=== PATIENT | male | born 1950 | race Caucasian/White ===

== ENCOUNTER 2024-03-11 10:04 | Outpatient (REF) | payer MEDICARE, OTHER, MEDICAID, SELFPAY ==
--- NOTE | ~2024-03-11 | XR_ITS ---
CLINICAL HISTORY: M25.512 - Pain in left shoulder 2 view left shoulder Comparison: None Findings: Periarticular osteophyte formation at the acromioclavicular and glenohumeral joints, indicating osteoarthritis. No erosions. No radiopaque foreign body. IMPRESSION: 1. No acute findings This document has been electronically signed by: Cyndi Mckenzie MD on 03/12/2024 14:57:13
--- NOTE | ~2024-03-11 | XR_ITS ---
CLINICAL HISTORY: M25.511 - Pain in right shoulder 2 view right shoulder Comparison: None Findings: Bones intact. No dislocations. Periarticular osteophyte formation at the acromioclavicular and glenohumeral joints, indicating osteoarthritis. No erosions. No radiopaque foreign body. IMPRESSION: 1. No acute findings This document has been electronically signed by: Cyndi Mckenzie MD on 03/12/2024 14:59:24
--- OUTSIDE RECORDS SUMMARY | 2024-03-12 13:16 | XMS_ITS | Clinical Summary ---
Author Organization [facility] Address [address] [place] [address] Care Team Providers Care Clinical Safety Specialist Name Role Phone Ramiro De Paz MD Primary Care Provider [phone] Allergies No known active allergies Medications Medication [...] age to complete this topic Care Teams Clinical Safety Specialist Relationship Specialty Start Date End Date Ramiro De Paz MD [address] [place] [address] PCP - General Internal Medicine 08/28/23
--- OUTSIDE RECORDS SUMMARY | 2024-03-12 13:17 | XMS_ITS | Clinical Summary ---
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-C4 level, sequela (CMS/HCC) (Primary Dx) 12/28/2023 2:47 PM EST - 12/28/2023 6:52 PM EST Emergency [facility] Emergency [address] [place] [phone] Karthik Hunter MD Right shoulder pain, unspecified chronicity (Primary Dx); First degree AV block Discharge Disposition: Home or Self Care 12/25/2023 5:15 PM EST Treatment [address] [phone] Jerry Marlow, PT Spinal cord injury at C1-C4 level, sequela (CMS/HCC) (Primary Dx) 12/23/2023 5:45 PM EST Treatment [address] [phone] Josef Gao, TEMPLATE INSPECTOR 12/19/2023 6:21 PM EST - 12/19/2023 11:59 PM EST Hospital Encounter [facility] [place] [address] [place] [phone] Acute pain of right shoulder Discharge Disposition: Home or Self Care 12/19/2023 5:30 PM EST Office Visit Walk-In Clinic [facility] [address] [place] [phone] Peng Rothman MD Acute pain of right shoulder (Primary Dx); Tendinitis of right shoulder 12/16/2023 5:45 PM EST Treatment [facility] Outpatient Rehabilitation - [place] 175 [facility] [address] [place] [address] Josef Gao, TEMPLATE INSPECTOR Hereditary spastic paraplegia (CMS/HCC) from Last 3 [...] 3:45 PM EST Consult Orthopedic Surgery - [place] 175 [facility] [address] [place] [address] Elaine Cooper MD [address] [place] [address] [address] [place] [address] Health Maintenance Due Date Last [...] ??Severe DJD of the glenohumeral joint with mtak-qd-clod arthritis. ?? No acute osseous abnormalities. Pj [...] ED Physician in the absence of a office secretary: yes ?? Previous ECG: ??Previous ECG: ??Compared to current ??Comparison ECG info: ??Brief 1-lead rhythm strip seen from January 2023, heart rate 75 bpm. ??No obvious PA prolongation. ??No formal EKG otherwise available. Interpretation: ??Interpretation: abnormal ?Details: ??Sinus bradycardia with a ventricular rate of 53 bpm. ??Slightly prolonged PA interval at 204 ms. ??Normal QRS, QTc, axis. ??No acute ischemic changes. ??First-degree AV block. Karthik Hunter MD ECG ORDERABLES from Last 3 Months Care Teams Sports Editor Relationship Specialty Start Date End Date Ramiro De Paz MD [address] [place] [address] [address] [place] [address] PCP - General 05/13/22
--- OUTSIDE RECORDS SUMMARY | 2024-03-12 13:17 | XMS_ITS | Encounter Summary ---
Author Organization [facility] Address [address] [place] [address] Care Team Providers Care Garment Inspector Name Role Phone Ramiro De Paz MD Primary Care Provider [phone] Reason for Referral * Consultation (Routine) - Authorized Specialty Diagnoses / Procedures Referred By Contolivia t Referred To Contact Occupational Therapy Diagnoses Arthritis of right shoulder region Pj Shaikh MD [address] [address] Referral ID Status Reason Start Date Expiration Date Visits Requested Visits Authorized [id number] Authorized Specialty Services Required 02/26/2024 02/25/2025 1 1 Reason for Visit * Reason Comments Pain Encounter Details Date Type Department Care Team ([facility] st Contact Info) Description 02/26/2024 2:30 PM EST Consult Orthopedic Surgery - [place] [address] [address] Pj Shaikh MD [address] [address] Arthritis of right shoulder region (Primary Dx) [...] Severe DJD of the glenohumeral joint with ptvl-mk-mtpm arthritis. No acute osseous abnormalities. Assessment and [...] 3:45 PM EST Consult Orthopedic Surgery - [place] 175 [facility] [address] [place] [address] Elaine Cooper MD 175 [facility] [address] [place] [address] Scheduled Referrals Name Type Priority [...] 12/19/2023 added in this encounter Care Teams Garment Inspector Relationship Specialty Start Date End Date Ramiro De Paz MD [address] [place] [address] PCP - General 05/13/22 documented as of this encounter
--- OUTSIDE RECORDS SUMMARY | 2024-03-12 13:17 | XMS_ITS | Patient Health Record ---
Author Organization Luis Valdes MD Address [address] [address] Care Team Providers Care Test Deck Supervisor Name Role Phone Leslye Smith Primary Care Provider [phone] Allergies Allergen (clinical drug ingredient) Drug/Non Drug [...] Unknown 01/13/2016 Administered Shingrix Unknown 06/09/2020 Administered [facility] pharmacy Zostavax Unknown 11/01/2020 Administered [facility] Lot# [id number] Left arm Social History [...] Problem Status W/U Status Risk Notes Problem 223581711 Chronic pain syndrome (G89.4) Active confirmed Problem 445966159 Quadriplegia, C5-C7 incomplete (G82.54) Active confirmed Problem 527082620 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) Active confirmed Problem 09171801 Age-related osteoporosis without current pathological fracture (M81.0) Active confirmed Problem 18084947 Dysthymia (F34.1) Active confirmed Problem 644523047 Recurrent UTI (N39.0) Active confirmed Problem Neuropathic pain (236313272) Neuropathic pain (M79.2) Active confirmed Problem 966583859 Spasticity (R25.2) Active confirmed Problem 85728637495798802 Neuralgia of both lower extremities (G57.93) Active confirmed Problem 335747313 Urinary incontinence with continuous leakage (N39.45) Active confirmed Problem 098454732 Decubitus ulcer of sacral region, stage 1 (L89.151) Active confirmed Problem 89008723 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) Active confirmed Problem 044775312 Chronic pain after traumatic injury (G89.21) Active confirmed Problem 71063294657549925 Pressure injur y of buttock, stage 1, unspecified laterality (L89.301) Active confirmed Plan Of Treatment Pending Test Test Name Order Date VENIPUNCT, ROUTINE* 04/05/2020 Physical Therapy 05/26/2020 Occupational Therapy 06/02/2020 Insurance Providers Payer Name Payer Address Payer Phone Subscriber Number Group Number Insured Name Patient Relationship to Insured Coverage Start Date Coverage End Date Medicare Centers for Medicare & Medicaid Services [place] Kathy [id number] [phone] [id number] Scott Concepcion Self - patient is the insured [facility] Indemnity Plan [address] [place] [address] [phone] [id number] Scott Concepcion Self - patient is the insured [employer] [address] [place] [address] [phone] [id number] Scott Concepcion Self - patient is the [...]
== END 2024-03-11 10:05 | disposition home or self-care (01) ==
LOC: HO.HOSX 10:04
PROVIDERS: Visit Provider Orthopaedic Surgery
DX: M25.811 Other specified joint disorders, right shoulder (principal); M25.511 Pain in right shoulder; M25.512 Pain in left shoulder
CPT/HCPCS: 20610; 73030; J1010; J2003

== ENCOUNTER 2024-03-11 13:49 | Outpatient (AMB) | payer OTHER, MEDICAID, SELFPAY ==
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
[2024-03-11 14:16] VITALS: BMI 31.9
--- OUTSIDE RECORDS SUMMARY | 2024-03-11 16:05 | XMS_ITS | Encounter Summary ---
Author Organization [facility] Address [address] [place] [address] Care Team Providers Care Bit Sharpener Operator Name Role Phone Ramiro De Paz MD Primary Care Provider [phone] Reason for Referral * Consultation (Routine) - Authorized Specialty Diagnoses / Procedures Referred By Contolivia t Referred To Contact Occupational Therapy Diagnoses Arthritis of right shoulder region Pj Shaikh MD [address] [address] Referral ID Status Reason Start Date Expiration Date Visits Requested Visits Authorized [id number] Authorized Specialty Services Required 02/26/2024 02/25/2025 1 1 Reason for Visit * Reason Comments Pain Encounter Details Date Type Department Care Team ([facility] st Contact Info) Description 02/26/2024 2:30 PM EST Consult Orthopedic Surgery - [place] [address] [address] Pj Shaikh MD [address] [address] Arthritis of right shoulder region (Primary Dx) Social History Tobacco Use Types Packs/Day Years Used Date Smoking Tobacco: Never Smokeless Tobacco: Never Alcohol Use Standard Drinks/Week Comments Yes 0 (1 standard drink = 0.6 oz pur e alcohol) Sex and Gender Information Value Date Recorded Sex Assigned at Not on file Gender Identity Not on file Sexual Orientation Not on file Job Start Date Occupation Industry Not on file Not on file Not on file documented as of this encounter Last Filed Vital Signs Vital Sign Reading Time Taken Comments Blood Pressure - - Pulse - - Temperature - - Respiratory Rate - - Oxygen Saturation - - Inhaled Oxygen Concentration - - Weight 95.3 kg (210 lb) 02/26/2024 2:19 PM EST Height 170.2 cm (5' 7 ) 02/26/2024 2:19 PM EST Body Mass Index 32.89 02/26/2024 2:19 PM EST documented in this encounter Progress Notes * Pj Shaikh MD - 02/26/2024 2:30 PM EST Patient:Scott Concepcion : 1950 VISIT DATE: 02/26/2024 Chief Complaint: Chief Complaint Patient presents with Right Shoulder - Pain HPI: Scott Concepcion is a 73 y.o.year old male who presents for consultation regarding his right shoulder. ROS: GENERAL:negative MUSCULOSKELETAL: See HPI The remainder of the review of systems is noncontributory Allergies: No Known Allergies Past Medical History: has a past medical history of Chronic constipation, Diastasis recti, Gastroparesis (07/2022), GERD (gastroesophageal reflux disease), Lymphedema, Neurogenic bladder, Neuropathicpain, Osteoporosis, Positive colorectal cancer screening using Cologuard test (10/2022), Tetraplegia (CMS/HCC) (2011), and Umbilical hernia. Social History: Social History Tobacco Use Smoking status: Never Smokeless tobacco: Never Substance Use Topics Alcohol use: Yes Past Surgeries: Past Surgical History: Procedure Laterality Date ANTERIOR CERVICAL DISCECTOMY 10/17/2011 APPENDECTOMY 05/10/2004 COLONOSCOPY 01/2023 incomplete due to poor prep UMBILICAL HERNIA REPAIR 09/17/2019 Medications: Outpatient Medications Marked as Taking for the 02/26/24 encounter (Consult) with Pj Shaikh MD Medication Sig Dispense Refill baclofen (LIORESAL) 10 mg tablet TAKE 2 TABLETS BY MOUTH 4 TIMES A DAY WITH FOOD OR MILK FOR 90 DAYS calcium carbonate-vitamin D3 (Caltrate 600 plus D) 600 mg-20 mcg (800 unit) tablet,chewable Chew 1 tablet. capsaicin (ZOSTRIX) 0.025 % cream APPLY TO AFFECTED AREA (BACK) 3 TIMES A DAY NEEDED clotrimazole (LOTRIMIN) 1 % cream APPLY AT BEDTIME ONCE A DAY TO GROIN finasteride (PROSCAR) 5 mg tablet Take 1 tablet (5 mg total) by mouth 1 (one) time each day. gabapentin (NEURONTIN) 300 mg capsule Take 2 capsules (600 mg total) by mouth. lidocaine (LIDODERM) 5 % patch 1 patch topically as needed for pain LYCOPENE ORAL tablet(s) oral naproxen (NAPROSYN) 500 mg tablet TAKE 1 TABLET BY MOUTH 2 TIMES DAILY (WITH MEALS) FOR 360 DAYS. nystatin (MYCOSTATIN) cream 1 APPLICATION TOPICALLY 2 TIMES A DAY,INSTR:TO GROIN. tamsulosin (FLOMAX) 0.4 mg 24 hr capsule Take 1 capsule (0.4 mg total) by mouth 1 (one) time each day. Physical Exam: Vitals: 02/26/24 1419 Weight: 95.3 kg (210 lb) Height: 1.702 m (67 ) APPEARANCE: Alert, oriented, no acute distress RIGHTSHOULDER SHOULDER EXAM: RIGHT Inspection: He is in a wheelchair. No significant atrophy or deformity to his shoulder Palpation: Mild tenderness around the glenohumeral joint line ROM: Active 160/70/L5 Passive approximates active range of motion Neurovascular: No gross deficits distally Strength: 4/5 supraspinatus, 4/5 infraspinatus, 5/5 subscapularis Special Tests: Neer. Positive Jara. Images: XR Shoulder 2+ Views Right Right shoulder x-rays February 26, 2024. AP, Grashey, Y lateral, axillary views. Severe DJD of the glenohumeral joint with sndu-kf-noci arthritis. No acute osseous abnormalities. Assessment and Plan: 1. Arthritis of right shoulder region He uses his walker part-time but otherwise he is essentially wheelchair-bound. He does have to do alot of weightbearing on his shoulders which is certainly contributing to his symptoms. He is not a good candidate for arthroplasty given the significant weightbearing he does on his shoulders. Would like to avoid cortisone injections as can lead to further deterioration. Will start with occupational therapy to help him modify his activities. He would also like to see a hand surgeon regarding the significant stiffness he has in both of his hands. Physical Therapy: PT/OT referral given today Pj Shaikh MD documented in this encounter Plan of Treatment Upcoming Encounters Date Type Department Care Team (Late st Contact Info) Description 03/17/2024 3:45 PM EST Consult Orthopedic Surgery - [place] 175 [facility] [address] [place] [address] Elaine Cooper MD 175 [facility] [address] [place] [address] Scheduled Referrals Name Type Priority Associated Diagnoses Order Schedule Ambulatory referral to Occupational Therapy Outpatient Referral Routine Arthritis of right shoulder region 1 Occurrences starting 02/26/2024 until 02/25/2025 documented as of this encounter Goals Goal Patient Goal Type Associated Problems Recent Progress Patient-Stated? Author LTGs General No Jerry Marlow, PT Note: Pt will transfer sit to stand from power w/c using w/walker with supervision - met Pt will ambulate with w/walker x50 ft with supervision - not met Pt will be independent with HEP - met documented as of this encounter Visit Diagnoses Diagnosis Arthritis of right shoulder region- Primary documented in this encounter Historical Medications * This list may reflect changes made after this encounter. Medication Sig Dispensed Refills Start Date End Date tamsulosin (FLOMAX) 0.4 mg 24 hr capsule Take 1 capsule (0.4 mg total) by mouth 1 (one) time each day. 10/08/2023 nystatin (MYCOSTATIN) cream 1 APPLICATION TOPICALLY 2 TIMES A DAY,INSTR:TO GROIN. 02/08/2024 naproxen (NAPROSYN) 500 mg tablet TAKE 1 TABLET BY MOUTH 2 TIMES DAILY (WITH MEALS) FOR 360 DAYS. 10/20/2023 LYCOPENE ORAL tablet(s) oral 09/26/2020 lidocaine (LIDODERM) 5 % patch 1 patch topically as needed for pain 01/01/2017 finasteride (PROSCAR) 5 mg tablet Take 1 tablet (5 mg total) by mouth 1 (one) time each day. 12/05/2023 clotrimazole (LOTRIMIN) 1 % cream APPLY AT BEDTIME ONCE A DAY TO GROIN 02/08/2024 capsaicin (ZOSTRIX) 0.025 % cream APPLY TO AFFECTED AREA (BACK) 3 TIMES A DAY NEEDED 01/10/2024 calcium carbonate-vitamin D3 (Caltrate 600 plus D) 600 mg-20 mcg (800 unit) tablet,chewable Chew 1 tablet. 07/29/2017 gabapentin (NEURONTIN) 300 mg capsule Take 2 capsules (600 mg total) by mouth. 01/01/2024 baclofen (LIORESAL) 10 mg tablet TAKE 2 TABLETS BY MOUTH 4 TIMES A DAY WITH FOOD OR MILK FOR 90 DAYS 12/19/2023 added in this encounter Care Teams Bit Sharpener Operator Relationship Specialty Start Date End Date Ramiro De Paz MD [address] [place] [address] PCP - General 05/13/22 documented as of this encounter
--- OUTSIDE RECORDS SUMMARY | 2024-03-11 16:05 | XMS_ITS | Data Portability ---
Author Organization [facility] Address [address] [place] [address] Care Team Providers Care Automatic Machine Attendant Name Role Phone CHRISTEN GAYTAN Primary Care Provider [phone] CHIRSTEN GAYTAN Referring Provider [phone] Assessment Encounter Date Assessment Date Assessment LastModified by Organization Details LastModified Time 03/22/2020 03/22/2020 have cleaned out both ears. they look fine after cleaning he feels his hearing is back to normal [email or web address] Not available 03/22/2020 14:41:03 Plan of Treatment Reminders Order Date Submit Date Provider Last Modified By Organization Details Last Modified Time Details Appointments None record ed. Lab None record ed. Referral None record ed. Procedures None record ed. Surgeries None record ed. Imaging None record ed. Medication Orders None record ed. Patient TargetsNo targets recorded. Patient InstructionsNo instructions recorded. Reason for Referral None Reported. Procedures Surgical History Date Name Laterality Status Provider Name and Address Organization Details Recorded Time procedure on knee completed Mike Medrano [employer] 03/22/2020 13:58:00 Imaging Results None recorded. Procedure Notes None recorded. Medical Equipment None Reported. Allergies No known drug allergies Medications Name Sig Start Date Stop Date Status Note LastModified by Organization Details LastModified Time dantrolene 25 mg capsule active Not Available Not Available Not Available sulfamethoxazole 800 mg-trimethoprim 160 mg tablet active Not Available Not Availabl e Not Available tamsulosin 0.4 mg capsule active Not Available Not Available Not Available baclofen 10 mg tablet active Not Available Not Available Not Available gabapentin 300 mg capsule active Not Available Not Available Not Available mupirocin 2 % topical ointment active Not Available Not Avail able Not Available furosemide 20 mg tablet active Not Available Not Available Not Available nystatin 100,000 unit/gram topical powder active Not Available Not Available Not Available ketoconazole 2 % topical cream active Not Available Not Availabl e Not Available clotrimazole 1 % topical cream active Not Available Not Availabl e Not Available finasteride 5 mg tablet active Not Available Not Available Not Available pregabalin 25 mg capsule active Not Available Not Available Not Available oxycodone 10 mg tablet active Not Available Not Available Not Available Vitals Date Recorded Body temperature Provider Name a nd Address Organization Details Last Updated DateTime 03/22/2020 96.9 [degF] Mike dawkins [facility] [employer] 03/22/2020 13:54:57 Social History Question Answer Notes LastModified by Organizat ion Details LastModified Time Tobacco Smoking Status Never Smoker [facility] [employer] 03/22/2020 13:56:47 What Is Your Level Of Alcohol Consumption? Moderate Information not available 03/22/2020 Sex: Unknown Functional Status Question Answer Note LastModified by Organization D etails LastModified Time What is your exercise level? Moderate Information not available 03/22/2020 Mental Status None recorded. Family History Relationship Description Onset Age of this Age Resolved Age Notes LastModified by Organization Details LastModified Time Father Diabetes mellitus [email or web address] Not available 03/22 13:58:11 Medical History No medical history recorded. Past Encounters Encounter ID Performer Location Encounter Start Date Encounter Closed Date Diagnosis/Indication Diagnosis SNOMED-CT Code Diagnosis ICD10 Code Diagnosis Note [id number] MD LISSY [facility]- OFF[facility] [address] [place] [id number] 03/22/2020 13:46:12 03/22/2020 15:30:27 Impacted cerumen of bilateral ears [id number] 001378 H61.23 Abnormal a uditory perception 18146702 H93.299 Health Concerns Section Related Observation LastModified by Organization Detai ls LastModified Time None Recorded Concern Status LastModified by Organization Details LastModified Time None Recorded Advance Directives Directive None Recorded Payers Encounter Date Sequence Insurance Name Policy Number Policy Jorgensen Covered Member ID Jorgensen Member ID Guarantor Name 03/22/2020 2 [facility] IN[facility]MN[facility] - [place] (INDEMNITY) [id number] Scott Marina Jamey [id number] Scott Concepcion 03/22/2020 1 [place]: [employer] Scott Concepcion [id number] Scott Concepcion Notes Date Note Type Note Provider Name and Address Organization Details Recorded Time 03/22/2020 text/html the left ear blocked about 2 weeks ago Peng Rush MD [facility] [address], [address], [facility] 03/22/2020 14:42:08
--- OUTSIDE RECORDS SUMMARY | 2024-03-11 16:05 | XMS_ITS | Clinical Summary ---
Author Organization [facility] Address [address] [place] [address] Care Team Providers Care Transportation Superintendent Name Role Phone Ramiro De Paz MD Primary Care Provider [phone] Allergies No known active allergies Medications Medication Sig Dispensed Refills Start Date End Date Status pantoprazole (PROTONIX) 40 MG tablet Take 1 tablet (40 mg total) by mouth every morning on an empty stomach. 30 tablet 0 08/28/2023 Active oxyCODONE-acetaminoph en (PERCOCET) 5-325 MG per tablet Take 1 tablet by mouth every 6 (six) hours as needed for pain. You may take 1/2 tablet or 1 full tablet every 6 hours as needed for pain 12 tablet 0 10/05/2023 Active Active Problems No known active problems Social History Tobacco Use Types Packs/Day Years Used Date Smoking Tobacco: Never Assessed Sex and Gender Information Value Date Recorded Sex Assigned at Not on file Gender Identity Not on file Sexual Orientation Not on file Job Start Date Occupation Industry Not on file Not on file Not on file Last Filed Vital Signs Vital Sign Reading Time Taken Comments Blood Pressure 123/70 10/05/2023 3:07 PM EDT Pulse 70 10/05/2023 3:05 PM EDT Temperature 36.7 ??C (98 ??F) 10/05/2023 3:05 PM EDT Respiratory Rate 17 10/05/2023 3:05 PM EDT Oxygen Saturation 98% 10/05/2023 3:05 PM EDT Inhaled Oxygen Concentration - - Weight 95 kg (209 lb 7 oz) 10/05/2023 3:05 PM ED T Height 172.7 cm (5' 8 ) 08/28/2023 3:41 PM EDT Body Mass Index 31.84 08/28/2023 3:41 PM EDT Plan of Treatment Health Maintenance Due Date Last Done Comments Hepatitis C Screening 1950 COVID-19 Vaccine (#1) 1950 Depression Screening 1961 Preventative Health Evaluation 06/29/1967 DTap / Tdap / Td (1 - Tdap) 1968 Colon Cancer Screening (Colonoscopy) 1994 Fall Risk Assessment 2014 Influenza Vaccine (#1) 2023 3, 12/04/2021, 11/25/2020, Additional history exists RSV Adult > 60+ Yrs or (1 - 1-dose 75+ series) 2024 Shingrix-Zoster Vaccine Completed 10/30/2020, 06/09 Pneumococcal Vaccine Completed 02/06/2021, 09/24/2018, 01/13/2016 Hepatitis B Vaccines Aged Out No long er eligible based on patient's age to complete this topic RSV Ped < 20 months Aged Out No longe r eligible based on patient's age to complete this topic Care Teams Transportation Superintendent Relationship Specialty Start Date End Date Ramiro De Paz MD [address] [place] [id number] PCP - General Internal Medicine 08/28/23
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
--- OUTSIDE RECORDS SUMMARY | 2024-03-11 16:05 | XMS_ITS ---
Author Name [facility] Organization Unknown Problems Problem Status Onset Date Problem Type Date of Resolution Source Right shoulder pain, unspecified chronicity active EncounterDiagnosisAct [facility] First degree AV block active EncounterDiagnosisAct [facility] Osteoarthritis active EncounterDiagnosisAct [facility] Knee effusion active EncounterDiagnosisAct [facility] Knee pain active EncounterDiagnosisAct [facility]
== END 2024-03-11 14:41 | disposition home or self-care (01) ==
PROVIDERS: Visit Provider Orthopaedic Surgery
DX: M25.811 Other specified joint disorders, right shoulder (principal); M25.511 Pain in right shoulder; M25.512 Pain in left shoulder
CPT/HCPCS: 20610; 99203

== ENCOUNTER → 2024-03-11 14:03 | Outpatient (BNV) | payer MEDICARE, OTHER, MEDICAID, SELFPAY | PROVIDERS: Visit Provider Radiology Diagnostic Radiology | DX: M25.511 Pain in right shoulder (principal); M25.512 Pain in left shoulder | CPT/HCPCS: 73030 ==

== ENCOUNTER 2024-06-17 13:39 | Outpatient (AMB) | payer OTHER, MEDICAID, SELFPAY ==
[2024-06-17 13:42] VITALS: BMI 31.9
--- NOTE | 2024-06-17 13:42 | A.OFFVIS_ITS ---
Vital Signs 06/17/24 13:42 Height 5 ft 8 in Weight 210 lb BMI 31.9 Intake Visit Reasons: Right shoulder pain, Bilateral knee pain Intake Note: Scott is a 73 year old male who presents with complaints of progressively worsening right shoulder pain as well as bilateral knee pains. The patient describes his pains as sharp in nature. The patient has had cortisone injec tions given into both of his knees in the past which gave him minimal relief. He has had cortisone injections into his right shoulder which gave him good relief. He has failed the last 3 months of conservative treatment which has included physical therapy exercises, a home exercise program, Tylenol, anti- inflammatory medicines, baclofen and gabapentin. At this point his knee pains are interfering with his activities of daily living and his ability to sleep well through the night. He wishes to hold off on surgery if at all possible. Allergies No Known Allergies Allergy (Verified 06/17/24 13:43) Medication List - Last Reconciled 06/17/24 by Beka Christensen MD acetaminophen ER 1,300 mg PO Q8H baclofen mg PO finasteride mg PO DAILY gabapentin mg PO tamsulosin mg PO Physical Exam Vital Signs: BMI result Body Mass Index 31.9 Const Other: Well-nourished well-developed very friendly male awake alert and oriented x3 in no acute distress Extrem Other: Bilateral knee examination shows minimal effusions, palpable crepitus with range of motion, pain with range of motion, no instability Right shoulder examination shows slightly decreased range of motion when compared to his left shoulder, 4+ out of 5 strength with supraspinatus testing, positive impingement signs, no instability Office Procedures AMB Joint Injection/Aspiration Joint Injection/Aspiration Primary Site: right shoulder Prep: site was prepped using aseptic technique Injected: 40 mg of, DepoMedrol and 1% plain lidocaine Procedure: The patient tolerated the procedure well Coding 36935 - Large joint Procedure code (CPT) selection complete Assessment & Plan Assessment & Plan (1) Impingement of right shoulder: Code(s): M25.811 - Other specified joint disorders, right shoulder Category: Medical (2) Osteoarthritis of left knee: Code(s): M17.12 - Unilateral primary osteoarthritis, left knee Category: Medical (3) Osteoarthritis of right knee: Code(s): M17.11 - Unilateral primary osteoarthritis, right knee Category: Medical (4) Right shoulder pain: Code(s): M25.511 - Pain in right shoulder Category: Medical (5) Pain in both knees: Code(s): M25.561 - Pain in right knee; M25.562 - Pain in left knee Plan Mr. Concepcion presents with right shoulder pain due to impingement syndrome. The risks and benefits of a right shoulder cortisone injection were discussed at length with the patient. The patient wished to proceed. He tolerated the injection well. He also has bilateral knee pains due to osteoarthritis. He has not gotten good relief from cortisone injections in the past. Thus, I will see if his insurance company will cover a viscosupplementation injection, such as Durolane, for both of his knees. I will see him back once the injections are approved. Feel free to call me at any time should questions regarding his orthopedic management arise. I spent 22 minutes in reviewing the patient's records and imaging studies, seeing the patient and documenting in the medical record. Orders: Orders AMB Joint Injection/Aspiration Today M25.811 - Other specified joint disorders, right shoulder Coding Level of Care Code Est Pt Level 3 (73312) Complex EM visit Add On G2211 Diagnoses Impingement of right shoulder M25.811 Osteoarthritis of left knee M17.12 Osteoarthritis of right knee M17.11 Right shoulder pain M25.511 Pain in both knees M25.561; M25.562 CPT Codes Coding - 39657 Large joint: 25433 - Large joint ([id number])
--- OUTSIDE RECORDS SUMMARY | 2024-06-17 14:57 | XMS_ITS ---
Author Organization [facility] Address [address] [place] [address] Care Team Providers Care Traveling Passenger Agent Name Role Phone Leslye Pandey Primary Care Provider Medications Medication SIG (Take, Route, Fr equency, Duration) Notes Start Date End Date Status Fluconazole 150 MG 1 tablet Orally once weekly for 60 days 02/16/2024 04/16/2024 Active Encounters Encounter Location Date Provider Diagnosis [address] [place]: [address] [place] [address] 02/16/2024 Leslye Pandey Plan Of Treatment Medication Medication Name Sig Start Date Stop Date Notes Fluconazole 150 MG 1 tablet Orally once weekly for 60 days 02/16/2024 04/16/2024 Next Appt Details Provider Name:Leslye Pandey, 11/06/2024 01:00:00 PM, [address] [facility], [place]man: [address], [place], [address], Progress Notes * Scott LOPEZDOB: 0 (73 yo M)Acc No.[id number]:02/16/2024 Patient:?Scott LOPEZ :1950???Age:73 Y???Sex:Male Address:[address] [place] [address] [address], [place], [address] * Refills? Start Fluconazole Tablet, 150 MG, Orally, 8, 1 tablet, once weekly, 60 days, Refills=0 * true * Date:? Generated for Printi ng/Faxing/eTransmitting on:?06/17/2024 02:57 PM EDT
--- OUTSIDE RECORDS SUMMARY | 2024-06-17 14:57 | XMS_ITS ---
Author Organization [facility] Address [address] [place] [address] Care Team Providers Care News Reel Cameraman Name Role Phone Leslye Pandey Primary Care Provider REASON FOR VISIT Rash Encounters Encounter Location Date Provider Diagnosis [address] [place]man: [address] [place] [address] 02/25/2024 Leslye Pandey Plan Of Treatment Next Appt Details Provider Name:Leslye Pandey, 11/06/2024 01:00:00 PM, [address] [place] [address], [place]man: [address], [place], [address], Progress Notes * Scott LOPEZDOB: 0 (73 yo M)Acc No.[id number]:02/25/2024 Patient:?Scott LOPEZ :1950???Age:73 Y???Sex:Male Address:[address] [place] [address], [address] * true * Date:? Generated for Printi ng/Michaelg/eTransmitting on:?06/17/2024 02:57 PM EDT
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
--- OUTSIDE RECORDS SUMMARY | 2024-06-17 14:57 | XMS_ITS | Patient Health Record ---
Author Organization [facility] Address [address] [address] Care Team Providers Care Maintenance Mechanic 2Nd Shift Name Role Phone Leslye Smith Primary Care [...] Vaccine Route Administration Date Status Comme nts Influenza Vaccine - Inactivated/Trivalent Unknown 12/24/2014 Administered Influenza Vaccine - Inactivated/Trivalent Unknown 11/16/2015 Administered Fluad (HD) Unknown 11/25/2020 Administered Prevnar 13 Unknown 01/13/2016 Administered Shingrix Unknown 06/09/2020 Administered [facility] pharmacy Zostavax Unknown 11/01/2020 Administered [facility] Lot# [id number] Left arm Social History Tobacco [...] Problem Status W/U Status Risk Notes Problem 944416825 Chronic pain syndrome (G89.4) Active confirmed Problem 488534400 Quadriplegia, C5-C7 incomplete (G82.54) Active confirmed Problem 285144466 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) Active confirmed Problem 36242284 Age-related osteoporosis without current pathological fracture (M81.0) Active confirmed Problem 71546785 Dysthymia (F34.1) Active confirmed Problem 254972627 Recurrent UTI (N39.0) Active confirmed Problem Neuropathic pain (426687521) Neuropathic pain (M79.2) Active confirmed Problem 325807753 Spasticity (R25.2) Active confirmed Problem 21241127160549735 Neuralgia of both lower extremities (G57.93) Active confirmed Problem 720932886 Urinary incontinence with continuous leakage (N39.45) Active confirmed Problem 068072414 Decubitus ulcer of sacral region, stage 1 (L89.151) Active confirmed Problem 69839629 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) Active confirmed Problem 839805781 Chronic pain after traumatic injury (G89.21) Active confirmed Problem 07799402510071470 Pressure injur y of buttock, stage 1, unspecified laterality (L89.301) Active confirmed Plan Of Treatment Pending Test Test Name Order Date VENIPUNCT, ROUTINE* 04/05/2020 Physical Therapy 05/26/2020 Occupational Therapy 06/02/2020 Insurance Providers Payer Name Payer Address Payer Phone Subscriber Number Group Number Insured Name Patient Relationship to Insured Coverage Start Date Coverage End Date Medicare [facility] [employer] Medicare [employer] Medicaid Services MD Kathy [phone] [id number] Scott Concepcion Self - patient is the insured [facility] Indemnity Plan [address] [place] [phone] [id number] Scott Concepcion Self - patient is the insured Medicaid [facility] [address] [place] [address] [phone] [id number] Scott Concepcion Self - patient is the [...]
--- OUTSIDE RECORDS SUMMARY | 2024-06-17 14:57 | XMS_ITS | Clinical Summary ---
Author Organization [facility] Address [address] [place] [address] Care Team Providers Care Registered Veterinary Technician Name Role Phone Ramiro De Paz MD Primary Care Provider [phone] Allergies No known active allergies Medications Medication [...] age to complete this topic Care Teams Registered Veterinary Technician Relationship Specialty Start Date End Date Ramiro De Paz MD [address] [place] [address] PCP - General Internal Medicine 08/28/23
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
--- OUTSIDE RECORDS SUMMARY | 2024-06-17 14:58 | XMS_ITS | Data Portability ---
Author Organization [facility] Address [address] [place] [address] Care Team Providers Care Oil Spreader Operator Name Role Phone CHRISTEN GAYTAN Primary Care Provider CHRISTEN GAYTAN Referring Provider [phone] Assessment Encounter Date Assessment Date Assessment LastModified [...] Time procedure on knee completed Mike Med[employer] 03/22/2020 13:58:00 Imaging Results None recorded. Procedure [...] DateTime 03/22/2020 96.9 [degF] Mike dawkins [employer] 03/22/2020 13:54:57 Social History Question Answer Notes LastModified by Organizat ion Details LastModified Time Tobacco Smoking Status Never Smoker STEVE Winn [facility] [employer] 03/22/2020 13:56:47 What Is Your Level Of [...] SNOMED-CT Code Diagnosis ICD10 Code Diagnosis Note 08396 MD LISSY Abel AND PIA- OFFICE [address] [place] [id number] 03/22/2020 13:46:12 03/22/2020 15:30:27 Impacted cerumen of bilateral ears [id number] 983069 H61.23 Abnormal a uditory perception 71291521 H93.299 Health Concerns Section Related Observation LastModified by Organization Detai ls LastModified Time None Recorded Concern Status LastModified by Organization Details LastModified Time None Recorded Advance Directives Directive None Recorded Payers Encounter Date Sequence Insurance Name Policy Number Policy Jorgensen Covered Member ID Jorgensen Member ID Guarantor Name 03/22/2020 2 [facility] INDEMNITY [facility]AN - [place] ([place]MN[place]) [id number] 2 Scott Marina Jamey [id number] Scott Concepcion 03/22/2020 1 [place]IC[place]: [employer] Scott Concepcion [id number] Scott Concepcion Notes Date Note Type Note Provider Name and Address Organization Details Recorded Time 03/22/2020 text/html the left ear blocked about 2 weeks ago Peng Rush MD [facility] [address], [address], STEVE [facility] 03/22/2020 14:42:08
== END 2024-06-17 14:18 | disposition home or self-care (01) ==
LOC: HO.HOS 13:40
PROVIDERS: Visit Provider Orthopaedic Surgery
DX: M25.811 Other specified joint disorders, right shoulder (principal); M25.511 Pain in right shoulder; M17.0 Bilateral primary osteoarthritis of knee
CPT/HCPCS: 20610; 99213

== ENCOUNTER → 2024-06-17 13:39 | Outpatient (BNVA) | payer OTHER, MEDICAID, SELFPAY | PROVIDERS: Visit Provider Orthopaedic Surgery | DX: M25.811 Other specified joint disorders, right shoulder (principal); M17.0 Bilateral primary osteoarthritis of knee | CPT/HCPCS: 20610; J1010; J2003 ==

== ENCOUNTER 2024-07-29 14:35 | Outpatient (AMB) | payer OTHER, MEDICAID, SELFPAY ==
--- NOTE | 2024-07-29 14:38 | MHC.OFFVIS ---
Vital Signs 07/29/24 14:39 Height 5 ft 8 in Weight 210 lb BMI 31.9 Intake Visit Reasons: Bilateral knee pains Intake Note: Scott is a 74 year old male who presents with complaints of bilateral knee pains. He describes his pains as sharp in nature. He has tried Tylenol, muscle relaxants and gabapentin which gave him mild relief. He wishes to hold off on surgery if at all possible. He has done physical therapy which gave him mild relief. Allergies No Known Allergies Allergy (Verified 07/29/24 14:39) Medication List - Last Reconciled 07/30/24 by Beka Christensen MD acetaminophen ER 1,300 mg PO Q8H baclofen mg PO finasteride mg PO DAILY gabapentin mg PO tamsulosin mg PO Physical Exam Vital Signs: BMI result Body Mass Index 31.9 Extrem Other: Bilateral knee examination shows minimal effusions, palpable crepitus with range of motion, no instability Office Procedures AMB Joint Injection/Aspiration Joint Injection/Aspiration Primary Site: left knee Prep: site was prepped using aseptic technique Injected: 60 mg of (Durolane viscosupplementation) and 1% plain lidocaine Procedure: The patient tolerated the procedure well Coding 68612 - Large joint Procedure code (CPT) selection complete AMB Joint Injection/Aspiration Joint Injection/Aspiration Primary Site: right knee Prep: site was prepped using aseptic technique Injected: 60 mg of (Durolane viscosupplementation) and 1% plain lidocaine Procedure: The patient tolerated the procedure well Coding 38922 - Large joint Procedure code (CPT) selection complete Results Reviewed Results Reviewed: X-rays of the patient's bilateral knee show joint space narrowing, subchondral sclerosis, no acute bony abnormalities Assessment & Plan Assessment & Plan (1) Osteoarthritis of left knee: Code(s): M17.12 - Unilateral primary osteoarthritis, left knee Category: Medical (2) Osteoarthritis of right knee: Code(s): M17.11 - Unilateral primary osteoarthritis, right knee Category: Medical Plan Mr. Concepcion presents with bilateral knee pains due to osteoarthritis. The risks and benefits of bilateral knee Durolane viscosupplementation injections were discussed at length with the patient. The patient wished to proceed. He tolerated the injections well. He will continue with his exercise program. He will contact me prior to his follow-up appointment in 3 months should any questions or concerns arise. Feel free to call me at any time should questions regarding his orthopedic management arise. I spent 22 minutes in reviewing the patient's records and imaging studies, seeing the patient and documenting in the medical record. Orders: Orders AMB Joint Injection/Aspiration 07/29/24 M17.12 - Unilateral primary osteoarthritis, left knee AMB Joint Injection/Aspiration 07/29/24 M17.11 - Unilateral primary osteoarthritis, right knee Coding Level of Care Code Est Pt Level 3 (83500) Complex EM visit Add On G2211 Diagnoses Osteoarthritis of left knee M17.12 Osteoarthritis of right knee M17.11 CPT Codes Coding - 07148 Large joint: 99344 - Large joint ([id number]) Coding - 06885 Large joint: 64712 - Large joint ([id number])
[2024-07-29 14:39] VITALS: BMI 31.9
--- OUTSIDE RECORDS SUMMARY | 2024-07-29 16:47 | XMS_ITS | Clinical Summary ---
Author Organization [facility] Address [address] [place] [address] Care Team Providers Care Tunnel Elastic Operator Lockstitch Name Role Phone Ramiro De Paz MD Primary Care Provider [phone] Allergies No known active allergies Medications Medication [...] 70 10/05/2023 3:05 PM EDT Temperature 36.7 C (98 F) 10/05/2023 3:05 PM EDT Respiratory Rate 17 [...] Screening (Colonoscopy) 1994 Fall Risk Assessment 2014 RSV Adult > 60+ Yrs or (1 - 1-dose 75+ series) 2024 Influenza Vaccine (Season Ended) 2024 12/17/2022, 12/04/2021, 11/25/2020, Additional history exists Shingrix-Zoster Vaccine Completed 10/30/2020, 06/09 Pneumococcal Vaccine Completed 02/06/2021, 09/24/2018, 01/13/2016 Hepatitis B Vaccines Aged Out No long er eligible based on patient's age to complete this topic RSV Ped < 20 months Aged Out No longe r eligible based on patient's age to complete this topic Care Teams Tunnel Elastic Operator Lockstitch Relationship Specialty Start Date End Date Ramiro De Paz MD [address] [place] [id number] PCP - General Internal Medicine 08/28/23
== END 2024-07-29 15:30 | disposition home or self-care (01) ==
LOC: HO.HOS 14:35
PROVIDERS: Visit Provider Orthopaedic Surgery
DX: M17.0 Bilateral primary osteoarthritis of knee (principal)
CPT/HCPCS: 20610; 99213

== ENCOUNTER → 2024-07-29 14:35 | Outpatient (BNVA) | payer OTHER, MEDICAID, SELFPAY | PROVIDERS: Visit Provider Orthopaedic Surgery | DX: M17.12 Unilateral primary osteoarthritis, left knee (principal); M17.11 Unilateral primary osteoarthritis, right knee | CPT/HCPCS: 20610; J2003; J7318 ==

== ENCOUNTER 2024-10-28 14:56 | Outpatient (AMB) | payer MEDICARE, OTHER, MEDICAID, SELFPAY ==
--- OUTSIDE RECORDS SUMMARY | 2024-02-16 09:59 | XMS_ITS ---
Author Organization [facility] Address [address] [place] [address] Care Team Providers Care Drapery Maker Name Role Phone Leslye Pandey Primary Care Provider Medications Medication SIG (Take, Route, Fr equency, Duration) Notes Start Date End Date Status Fluconazole 150 MG 1 tablet Orally once weekly for 60 days 02/16/2024 04/16/2024 Active Encounters Encounter Location Date Provider Diagnosis [address] [place]: [address] [place] [address] 02/16/2024 Leslye Pandey Plan Of Treatment Medication Medication Name Sig Start Date Stop Date Notes Fluconazole 150 MG 1 tablet Orally once weekly for 60 days 02/16/2024 04/16/2024 Next Appt Details Provider Name:Leslye Pandey, 11/06/2024 01:00:00 PM, [address] [place] [address], [place]: [address], [place], [address], Progress Notes * Scott LOPEZDOB: 0 (73 yo M)Acc No.[id number]:02/16/2024 Patient: Scott GRANDE :1950 A ge:73 Y S ex:Male Address:[address] [place] [address], [address] * Refills Start Fluconazole Tablet, 150 MG, Orally, 8, 1 tablet, once weekly, 60 days, Refills=0 * true * Date: Generated for Printi ng/Faxing/eTransmitting on: 0 10/28/2024 06:29 PM EDT
--- OUTSIDE RECORDS SUMMARY | 2024-02-25 07:38 | XMS_ITS ---
Author Organization [facility] Address [address] [place] [address] Care Team Providers Care Elevator Operator Service Name Role Phone Leslye Pandey Primary Care Provider [phone] REASON FOR VISIT Rash Encounters Encounter Location Date Provider Diagnosis [address] [place]: [address] [place] [address] 02/25/2024 Leslye Pandey Plan Of Treatment Next Appt Details Provider Name:Leslye Pandey, 11/06/2024 01:00:00 PM, [address] [place] [address], [place]: [address], [place], [address], Progress Notes * Scott LOPEZDOB: 0 (73 yo M)Acc No.[id number]:02/25/2024 Patient: Scott GRANDE :1950 A ge:73 Y S ex:Male Address:[address] [place] [address], [address] * true * Date: Generated for Printi ng/Faxing/eTransmitting on: 0 10/28/2024 06:29 PM EDT
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
--- OUTSIDE RECORDS SUMMARY | 2024-07-16 06:12 | XMS_ITS ---
Author Organization [employer] [facility] Address [address] [place] [address] Care Team Providers Care Kennel Keeper Name Role Phone Leslye Pandey Primary Care Provider [phone] REASON FOR VISIT Cologuard Encounters Encounter Location Date Provider Diagnosis [address] [place]: [address] [place] [address] 07/16/2024 Leslye Pandey Plan Of Treatment Next Appt Details Provider Name:Leslye Pandey, 11/06/2024 01:00:00 PM, [address] [place] [address], [place]: [address], [place], [address], Progress Notes * Scott LOPEZDOB: 0 (74 yo M)Acc No.[id number]:07/16/2024 Patient: Scott GRANDE :1950 A ge:74 Y S ex:Male Address:[address] [place] [address], [address] * true * Date: Generated for Michelli kamaljit/Michaelg/eTransmitting on: 0 10/28/2024 06:29 PM EDT
--- NOTE | 2024-10-28 14:57 | MHC.OFFVIS ---
Intake Visit Reasons: OV - Bilateral Durolane 07/29 follow up Intake Note: Scott is a 74 year old male who presents with complaints of intermittent bilateral knee pains, ?muscle spasms? in his bilateral lower extremities and pain along his left sacroiliac joint. The patient got temporary relief from the Durolane injections that he received on 07/29/2024. He continues with his home stretching program. Allergies No Known Allergies Allergy (Verified 10/28/24 15:02) Medication List - Last Reconciled 10/29/24 by Beka Christensen MD acetaminophen ER 1,300 mg PO Q8H baclofen mg PO finasteride mg PO DAILY gabapentin mg PO tamsulosin mg PO Physical Exam Const Other: Well-nourished well-developed very friendly male awake alert and oriented x3 in no acute distress Extrem Other: Low back examination shows tenderness over his left sacroiliac joint, no overlying skin lesions Bilateral knee examination shows palpable crepitus with range of motion, no instability Assessment & Plan Assessment & Plan (1) Osteoarthritis of left knee: Code(s): M17.12 - Unilateral primary osteoarthritis, left knee Category: Medical (2) Osteoarthritis of right knee: Code(s): M17.11 - Unilateral primary osteoarthritis, right knee Category: Medical Plan Mr. Concepcion presents with bilateral knee pains due to degenerative joint disease as well as low back pain most likely due to left sacroiliitis. I will arrange for the patient to have an evaluation in our pain management department. He may be a candidate for sacroiliac joint cortisone injection for a nerve stimulation procedure on his lower extremities. I will also see if his insurance company will cover another viscosupplementation injection, such as Durolane, for both of his knees. I will see him back once the injections are available. Feel free to call me at any time should questions regarding his orthopedic management arise. I spent 21 minutes in reviewing the patient's records and imaging studies, seeing the patient and documenting in the medical record. Orders: Referrals Pain Management Referral G89.29 - Other chronic pain, M17.11 - Unilateral primary osteoarthritis, right knee, M17.12 - Unilateral primary osteoarthritis, left knee, M53.3 - Sacrococcygeal disorders, not elsewhere classified, M62.838 - Other muscle spasm Coding Level of Care Code Est Pt Level 3 (81559) Complex EM visit Add On G2211 Diagnoses Osteoarthritis of left knee M17.12 Osteoarthritis of right knee M17.11
--- OUTSIDE RECORDS SUMMARY | 2024-10-28 18:29 | XMS_ITS | Patient Health Record ---
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) Active confirmed Problem 53902216 Age-related osteoporosis without current pathological fracture (M81.0) Active confirmed Problem 33689877 Dysthymia (F34.1) Active confirmed Problem 817078571 Recurrent UTI (N39.0) Active confirmed Problem Neuropathic pain (109398070) Neuropathic pain (M79.2) Active confirmed Problem 981011154 Spasticity (R25.2) Active confirmed Problem 21449060310859638 Neuralgia of both lower extremities (G57.93) Active confirmed Problem 266584371 Urinary incontinence with continuous leakage (N39.45) Active confirmed Problem 540558016 Decubitus ulcer of sacral region, stage 1 (L89.151) Active confirmed Problem 39505166 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) Active confirmed Problem 060955463 Chronic pain after traumatic injury (G89.21) Active confirmed Problem 67361271820161420 Pressure injur y of buttock, stage 1, unspecified laterality (L89.301) Active confirmed Plan Of Treatment Pending Test Test Name Order Date VENIPUNCT, ROUTINE* 04/05/2020 Physical Therapy 05/26/2020 Occupational Therapy 06/02/2020 Insurance Providers Payer Name Payer Address Payer Phone Subscriber Number Group Number Insured Name Patient Relationship to Insured Coverage Start Date Coverage End Date Medicare [facility] for Medicare [employer] Medicaid Services [place] Kathy [phone] [id number] Scott Concepcion Self - patient is the insured [facility] Indemnity Plan [address] [place] [phone] [id number] Scott Concepcion Self - patient is the insured Medicaid [facility] [address] [place] [address] [phone] [id number] Scott Concepcion Self - patient is the [...]
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
--- OUTSIDE RECORDS SUMMARY | 2024-10-28 18:29 | XMS_ITS | Clinical Summary ---
Author Organization [facility] Address [address] [place] [address] Care Team Providers Care Radio Recorder Name Role Phone Ramiro De Paz MD Primary Care Provider [phone] Allergies No known active allergies Medications Medication [...] - 1-dose 75+ series) 2024 Influenza Vaccine (#1) 2024 3, 12/04/2021, 11/25/2020, Additional history exists Shingrix-Zoster Vaccine Completed 10/30/2020, 06/09 Pneumococcal Vaccine Completed 02/06/2021, 09/24/2018, 01/13/2016 Hepatitis B Vaccines Aged Out No long er eligible based on patient's age to complete this topic RSV Ped < 20 months Aged Out No longe r eligible based on patient's age to complete this topic Care Teams Radio Recorder Relationship Specialty Start Date End Date Ramiro De Paz MD [address] [place] [id number] PCP - General Internal Medicine 08/28/23
--- OUTSIDE RECORDS SUMMARY | 2024-10-28 18:30 | XMS_ITS | Encounter Summary ---
Author Organization [facility] Address [address] [place] [address] Care Team Providers Care Billiard Table Assembler Name Role Phone Pcp, No Primary Care Provider Unavailabl e Encounter Details Date Type Department Care Team (Late st Contact Info) Description 10/15/2024 Scanned Document [facility] [address] [address] Dulce Aguilar [address] [address] Social History Tobacco Use Types Packs/Day Years Used Date Smoking Tobacco: Never Assessed Sex and Gender Information Value Date Recorded Sex Assigned at Not on file Legal Sex Male 2:01 PM EDT Gender Identity Not on file Sexual Orientation Not on file documented as of this encounter Plan of Treatment Upcoming Encounters Date Type Department Care Team (Late st Contact Info) Description 11/18/2024 10:15 AM EDT Appointment Orthopedic [address] [address] Emy Hassan APRN [address] [address] 11/18/2024 11:45 AM EDT Appointment Orth[facility] [address] [phone] Maximiliano Moon MD [address] [place] [phone] 11/24/2024 10:15 AM EDT Office Visit Orth[facility] [address] [phone] Maximiliano Moon MD [address] [place] [address] 12/08/2024 11:00 AM EDT [facility] [address] [address] Maximiliano Moon MD [address] [place] [address] 12/29/2024 1:45 PM EST [facility] [address] [address] Maximiliano Moon MD [address] [place] [address] [phone] documented as of this encounter Visit Diagnoses Not on filedocumented in this encounter Care Teams Billiard Table Assembler Relationship Specialty Start Date End Date Pcp, No PCP - General General Medicine 10/13/24 documented as of this encounter
--- OUTSIDE RECORDS SUMMARY | 2024-10-28 18:30 | XMS_ITS | Clinical Summary ---
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) 10/13/2024 2:45 PM EDT Consult [facility] [address] [phone] Maximiliano Moon MD Pain in left ankle and joints of left foot (Primary Dx) 10/13/2024 2:15 PM EDT Ancillary Procedure [facility] [address] [phone] from Last 3 Months Social History Tobacco Use Types Packs/Day Years Used Date Smoking Tobacco: Never Assessed Sex and Gender Information Value Date Recorded Sex Assigned at Not on file Legal Sex Male 2:01 PM EDT Gender Identity Not on file Sexual Orientation Not on file Plan of Treatment Upcoming Encounters Date Type Department Care Team (Late st Contact Info) Description 11/18/2024 10:15 AM EDT Appointment [facility] [address] [place] [address] Emy Hassan, STORE CLERK CASHIER [address] [address] 11/18/2024 11:45 AM EDT [facility]ointment [facility] [address] [address] Maximiliano Moon MD [address] [place] [address] 11/24/2024 10:15 AM EDT [facility] [address] [address] Maximiliano Moon MD [address] [place] [address] 12/08/2024 11:00 AM EDT [facility] [address] 236132 Maximiliano Moon MD [address] [place] [phone] 12/29/2024 1:45 PM EST [facility] [address] 595[address] Maximiliano Moon MD [address] [place] [address] Health Maintenance Due Date Last Done Comments Advance Care Planning 1950 Hepatitis C Virus Screening 1950 DTaP/Tdap/Td Vaccines (1 - Tdap) 1968 Colonoscopy 1994 Pneumococcal Vaccines 50+ (1 of 1 - PCV) 06/29/1999 Zoster (Shingles) Vaccine (1 of 2) 06/29/1999 RSV Vaccine 60 years and older and Patients (1 - 1-dose 75+ series) 2024 Influenza Vaccine 09/11/2024 11/01/2023, , 12/04/2021, Additional history exists COVID-19 Vaccine ( - 2023- season) 2024 Hepatitis B Vaccines Aged Out No long er eligible based on patient's age to complete this topic Procedures Procedure Name Priority Date/Time Associated Diagnosis Comments XR ANKLE 2 VIEWS-LEFT Routine 10/13/2024 2:54 PM EDT Pain in left ankle and joints of left foot XR FOOT 3+ VIEWS-LEFT Routine 10/13/2024 2:54 PM EDT Pain in left ankle and joints of left foot from Last 3 Months Results * XR Foot 3+ views-Left (10/13/2024 2:54 PM EDT) Narrative [facility] - 10/13/2024 2:54 PM EDT This exam was performed in office at [facility] and images reviewed by orthopedic provider. Any findings are documented within ambulatory encounter note on date of service. Maximiliano [facility] BLES Final Result OAH * XR Ankle 2 views-Left (10/13/2024 2:54 PM EDT) Narrative [facility] - 10/13/2024 2:54 PM EDT This exam was performed in office at [facility] and images reviewed by orthopedic provider. Any findings are documented within ambulatory encounter note on date of service. Maximiliano [facility] BL[facility] Final Result [facility] from Last 3 Months Insurance * Guarantor: Scott Concepcion Account Type Relation to Patient Date of Phone Billing Address Personal/Family Self 1950 [address] [facility] [address] [place] [address] MEDICARE PART A & B [facility] Care Teams Glass Worker Relationship Specialty Start Date End Date Pcp, No PCP - General General Medicine 10/13/24
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
--- OUTSIDE RECORDS SUMMARY | 2024-10-28 18:30 | XMS_ITS ---
Author Name [facility] Organization Unknown Problems Problem Status Onset Date Problem Type Date of Resolution Source Pain in left ankle and joints of left foot active EncounterDiagnosisAct [facility] Knee effusion active En[facility]DiagnosisAct [facility] Osteoarthritis active En[facility]DiagnosisAct [facility] First degree AV block active [facility]DiagnosisAct [facility] Knee pain active En[facility]DiagnosisAct [facility] Right shoulder pain, unspecified chronicity active EncounterDiagnosisAct [facility] Encounters Encounter Type Encounter Reason Primary Diagnosis Location Date Ambulatory [facility] 10/13/2024 Ambulatory Pain in left ankle and joints of left foot Pain in left ankle and joints of left foot [facility] 10/13/2024 Emergency RIGHT SHOULDER INJURY Pain in right shoulder [facility] 12/28/2023 Emergency Pain in unspecified knee Pain in unspecified knee [facility] 10/05/2023 Emergency Unspecified abdominal pain Unspecified abdominal pain [facility] 08/28/2023 Care Team Organization Name Specialty Phone Email Start Date End [facility] 10/16/2024 [facility] NO PCP Primary Care 10/13/[address] [facility] 10/13/2024 [facility] 09/07/2024 [facility] Primary Care 12/29/2023 [facility] Primary Care 12/28/2023 [facility] 10/05/2023 [facility] 08/12 [facility] 08/30/2023 08/25/2024
== END 2024-10-28 15:26 | disposition home or self-care (01) ==
LOC: HO.HOS 14:57
PROVIDERS: Visit Provider Orthopaedic Surgery
DX: M17.0 Bilateral primary osteoarthritis of knee (principal)
CPT/HCPCS: 99213; G2211

== ENCOUNTER → 2024-10-28 14:56 | Outpatient (BNVA) | payer MEDICARE, OTHER, MEDICAID, SELFPAY | PROVIDERS: Visit Provider Orthopaedic Surgery | DX: M17.0 Bilateral primary osteoarthritis of knee (principal); Z79.899 Other long term (current) drug therapy | CPT/HCPCS: 99212 ==